=== PATIENT | male | born 1970 | race Two or more races ===

== ENCOUNTER 2021-03-10 12:30 | Inpatient (IN) | payer OTHER ==
[~2021-03-10] VITALS: Ht 182.9 cm; Wt 133.8 kg
[2021-03-10] MEDS ORDERED: NORVASC10 MG PO (14:02)
[2021-03-10] MEDS ORDERED: OXYCODON-ACETA1 EACH PO (14:03)
[2021-03-10] MEDS ORDERED: BACLOFEN20 MG PO (14:04)
[2021-03-12] MEDS ORDERED: GLYCOPYRROLATE2 MG (08:13)
[2021-03-12] MEDS ORDERED: FOLIC ACID1 MG (08:13)
[2021-03-12] MEDS ORDERED: FAMOTIDINE40 MG (08:13)
[2021-03-12] MEDS ORDERED: LINZESS145 MCG (08:14)
[2021-04-28] MEDS ORDERED: [UNRECOGNIZED DRUG - OTHER] PO (10:48)
== END 2021-03-18 10:25 | disposition home or self-care (01) | DRG 329 ==
LOC: O/R 03-12 06:32 → SURG 03-12 06:32 → SURH 03-12 12:30 → SURG 03-18 10:25
PROVIDERS: ADMIT Surgery; ATTEND Surgery
PROC: 07BD0ZX Excision of Aortic Lymphatic, Open Approach, Diagnostic (ICD-10-PCS; 2021-03-12)
PROC: 3E0F7SF Introduction of Other Gas into Respiratory Tract, Via Natural or Artificial Opening (ICD-10-PCS; 2021-03-12)
PROC: 4A033R1 Measurement of Arterial Saturation, Peripheral, Percutaneous Approach (ICD-10-PCS; 2021-03-12)
PROC: 4A12X4Z Monitoring of Cardiac Electrical Activity, External Approach (ICD-10-PCS; 2021-03-12)
PROC: 3E0F7GC Introduction of Other Therapeutic Substance into Respiratory Tract, Via Natural or Artificial Opening (ICD-10-PCS; 2021-03-12)
PROC: 0DTF0ZZ Resection of Right Large Intestine, Open Approach (ICD-10-PCS; principal; 2021-03-12 13:30)
PROC: 8E0ZXY6 Isolation (ICD-10-PCS; 2021-03-17)
DX: C18.0 Malignant neoplasm of cecum (principal); G82.50 Quadriplegia, unspecified; N39.0 Urinary tract infection, site not specified; Z16.12 Extended spectrum beta lactamase (ESBL) resistance; L89.329 Pressure ulcer of left buttock, unspecified stage; B96.1 Klebsiella pneumoniae [K. pneumoniae] as the cause of diseases classified elsewhere; Z20.822 Contact with and (suspected) exposure to COVID-19; E66.01 Morbid (severe) obesity due to excess calories; G47.33 Obstructive sleep apnea (adult) (pediatric)

== ENCOUNTER 2021-04-30 10:06 | Day surgery (SDC) | payer OTHER ==
[~2021-04-30 10:06] MED LIST: BACLOFEN20 MG PO; FAMOTIDINE40 MG; FOLIC ACID1 MG; GLYCOPYRROLATE2 MG; LINZESS145 MCG; NORVASC10 MG PO; OXYCODON-ACETA1 EACH PO; ULTRACET PO; [UNRECOGNIZED DRUG - OTHER] PO
== END 2021-04-30 12:05 | disposition home or self-care (01) ==
LOC: CIR.AMB 10:06
PROVIDERS: ATTEND Surgery
DX: C18.0 Malignant neoplasm of cecum (principal)
CPT/HCPCS: 36561; C1751

== ENCOUNTER 2022-04-07 13:02 | Inpatient (IN) | payer OTHER ==
[~2022-04-07] VITALS: Ht 182.9 cm; Wt 99.8 kg
[~2022-04-07 13:02] MED LIST changes: +LEVOFLOXACIN500 MG PO; +METRONIDAZOLE500 MG PO; +OMEPRAZOLE20 MG
[2022-04-07] MEDS ORDERED: PERCOCET 5-3251 EACH (13:27)
[2022-04-08] MEDS ORDERED: DIPHENHYDR50 MG/1 M1 (11:44)
[2022-04-08] MEDS ORDERED: FAMOTIDINE40 MG (11:44)
[2022-04-08] MEDS ORDERED: DICYCLOMINE HCL20 MG (11:44)
[2022-04-08] MEDS ORDERED: DEXAMETHASO4 MG/1 M1 (11:44)
[2022-04-08] MEDS ORDERED: OXALIPLATI100 MG/20 (11:45)
[2022-04-08] MEDS ORDERED: MELOXICAM15 MG (11:45)
[2022-04-08] MEDS ORDERED: MVASI25 MG/1 ML (11:45)
[2022-04-08] MEDS ORDERED: LEUCOVORIN CAL200 MG (11:45)
[2022-04-08] MEDS ORDERED: GLYCOPYRROLATE2 MG (11:45)
[2022-04-08] MEDS ORDERED: TRAM1TAB98 (11:45)
[2022-04-08] MEDS ORDERED: FOLIC ACID1 MG (11:45)
[2022-04-08] MEDS ORDERED: FLUOROURAC1 GM/20 ML (11:45)
[2022-04-08] MEDS ORDERED: FAMOTIDINE20 MG/2 M1 (11:45)
[2022-04-08] MEDS ORDERED: ONDANSETRON4 MG/2 M5 (11:45)
[2022-04-26] MEDS ORDERED: INTESTINEX680 M1 PO (10:48)
[2022-04-26] MEDS ORDERED: FOLIC ACID1 MG PO (10:48)
[2022-04-26] MEDS ORDERED: ELIQUIS5 MG PO (10:48)
[2022-04-26] MEDS ORDERED: ULTRAM50 MG PO (10:48)
[2022-04-26] MEDS ORDERED: ABANEU-SL TABL1 EACH SL (10:48)
[2022-04-26] MEDS ORDERED: DICYCLOMINE HCL20 MG PO (10:48)
[2022-04-26] MEDS ORDERED: OMEPRAZOLE20 MG PO (10:48)
[2022-04-26] MEDS ORDERED: NORVASC10 MG PO (10:48)
[2022-04-26] MEDS ORDERED: MAGNESIUM CHLOR70 MG PO (10:48)
[2022-04-26] MEDS ORDERED: FUSION PLUS CA1 EACH PO (10:48)
[2022-04-26] MEDS ORDERED: FAMOTIDINE20 MG PO (10:50)
== END 2022-04-26 12:20 | disposition home or self-care (01) | DRG 592 ==
LOC: ER 13:02 → MEDI 21:51 → MEDJ 04-11 19:23
PROVIDERS: ADMIT Internal Medicine Geriatric Medicine; ATTEND Internal Medicine Geriatric Medicine
PROC: B24BZZZ Ultrasonography of Heart with Aorta (ICD-10-PCS; 2022-04-07)
PROC: 2W15X6Z Compression of Back using Pressure Dressing (ICD-10-PCS; 2022-04-08)
PROC: 4A12X4Z Monitoring of Cardiac Electrical Activity, External Approach (ICD-10-PCS; 2022-04-08)
PROC: 0HB6XZZ Excision of Back Skin, External Approach (ICD-10-PCS; principal; 2022-04-14)
DX: L89.154 Pressure ulcer of sacral region, stage 4 (principal); A41.9 Sepsis, unspecified organism; G82.50 Quadriplegia, unspecified; M86.18 Other acute osteomyelitis, other site; N39.0 Urinary tract infection, site not specified; C18.9 Malignant neoplasm of colon, unspecified; C78.7 Secondary malignant neoplasm of liver and intrahepatic bile duct; L08.9 Local infection of the skin and subcutaneous tissue, unspecified; B96.20 Unspecified Escherichia coli [E. coli] as the cause of diseases classified elsewhere; B96.4 Proteus (mirabilis) (morganii) as the cause of diseases classified elsewhere; B96.89 Other specified bacterial agents as the cause of diseases classified elsewhere; I10 Essential (primary) hypertension; G47.33 Obstructive sleep apnea (adult) (pediatric); I48.0 Paroxysmal atrial fibrillation; E87.6 Hypokalemia; Z20.822 Contact with and (suspected) exposure to COVID-19; E66.01 Morbid (severe) obesity due to excess calories; Z74.01 Bed confinement status

== ENCOUNTER 2023-03-14 10:29 | Inpatient (IN) | payer OTHER ==
[~2023-03-14] VITALS: Ht 182.9 cm; Wt 83.9 kg
[~2023-03-14 10:29] MED LIST changes: +ABANEU-SL TABL1 EACH SL; +DEXAMETHASO4 MG/1 M1; +DICYCLOMINE HCL20 MG; +DICYCLOMINE HCL20 MG PO; +DIPHENHYDR50 MG/1 M1; +ELIQUIS5 MG PO; +FAMOTIDINE20 MG PO; +FAMOTIDINE20 MG/2 M1; +FLUOROURAC1 GM/20 ML; +FOLIC ACID1 MG PO; +FUSION PLUS CA1 EACH PO; +INTESTINEX680 M1 PO; +LEUCOVORIN CAL200 MG; +MAGNESIUM CHLOR70 MG PO; +MELOXICAM15 MG; +MVASI25 MG/1 ML; +OMEPRAZOLE20 MG PO; +ONDANSETRON4 MG/2 M5; +OXALIPLATI100 MG/20; +PERCOCET 5-3251 EACH; +TRAM1TAB98; +ULTRAM50 MG PO
[2023-03-14] MEDS ORDERED: ELIQUIS2.5 MG (10:55)
[2023-04-09] MEDS ORDERED: FAMOTIDINE20 MG PO (04:47)
[2023-04-09] MEDS ORDERED: AMLODIPINE BESYL5 MG PO (04:47)
[2023-04-09] MEDS ORDERED: INTESTINEX680 M1 PO (04:47)
[2023-04-09] MEDS ORDERED: ELIQUIS5 MG PO (04:47)
[2023-04-09] MEDS ORDERED: FUSION PLUS CA1 EACH PO (04:47)
== END 2023-04-09 07:37 | disposition home or self-care (01) | DRG 981 ==
LOC: ER 10:29 → MEDJ 22:34
PROVIDERS: Emergency Medicine; Internal Medicine; Specialist; ADMIT Internal Medicine Geriatric Medicine; ATTEND Internal Medicine Geriatric Medicine
PROC: BW21YZZ Computerized Tomography (CT Scan) of Abdomen and Pelvis using Other Contrast (ICD-10-PCS; 2023-03-14)
PROC: BW24ZZZ Computerized Tomography (CT Scan) of Chest and Abdomen (ICD-10-PCS; 2023-03-14)
PROC: 02HV33Z Insertion of Infusion Device into Superior Vena Cava, Percutaneous Approach (ICD-10-PCS; 2023-03-15)
PROC: 4A12X4Z Monitoring of Cardiac Electrical Activity, External Approach (ICD-10-PCS; 2023-03-15)
PROC: 0JD70ZZ Extraction of Back Subcutaneous Tissue and Fascia, Open Approach (ICD-10-PCS; 2023-03-16)
PROC: 0JD70ZZ Extraction of Back Subcutaneous Tissue and Fascia, Open Approach (ICD-10-PCS; 2023-03-16)
PROC: 0JD90ZZ Extraction of Buttock Subcutaneous Tissue and Fascia, Open Approach (ICD-10-PCS; 2023-03-16)
PROC: 0JD70ZZ Extraction of Back Subcutaneous Tissue and Fascia, Open Approach (ICD-10-PCS; principal; 2023-03-23)
PROC: 0JD70ZZ Extraction of Back Subcutaneous Tissue and Fascia, Open Approach (ICD-10-PCS; 2023-03-23)
PROC: 0JD90ZZ Extraction of Buttock Subcutaneous Tissue and Fascia, Open Approach (ICD-10-PCS; 2023-03-23)
PROC: 0W9930Z Drainage of Right Pleural Cavity with Drainage Device, Percutaneous Approach (ICD-10-PCS; 2023-03-24)
PROC: B54MZZZ Ultrasonography of Right Upper Extremity Veins (ICD-10-PCS; 2023-03-27)
PROC: 0W29X0Z Change Drainage Device in Right Pleural Cavity, External Approach (ICD-10-PCS; 2023-03-31)
PROC: 0JD70ZZ Extraction of Back Subcutaneous Tissue and Fascia, Open Approach (ICD-10-PCS; 2023-04-01)
PROC: 0JD70ZZ Extraction of Back Subcutaneous Tissue and Fascia, Open Approach (ICD-10-PCS; 2023-04-01)
PROC: 0JD90ZZ Extraction of Buttock Subcutaneous Tissue and Fascia, Open Approach (ICD-10-PCS; 2023-04-01)
PROC: B24BZZZ Ultrasonography of Heart with Aorta (ICD-10-PCS; 2023-04-01)
DX: J90 Pleural effusion, not elsewhere classified (principal); G82.50 Quadriplegia, unspecified; L89.154 Pressure ulcer of sacral region, stage 4; N39.0 Urinary tract infection, site not specified; C78.7 Secondary malignant neoplasm of liver and intrahepatic bile duct; C78.5 Secondary malignant neoplasm of large intestine and rectum; Z16.12 Extended spectrum beta lactamase (ESBL) resistance; C18.0 Malignant neoplasm of cecum; B96.1 Klebsiella pneumoniae [K. pneumoniae] as the cause of diseases classified elsewhere; D63.0 Anemia in neoplastic disease; B96.89 Other specified bacterial agents as the cause of diseases classified elsewhere; I48.0 Paroxysmal atrial fibrillation; K76.81 Hepatopulmonary syndrome; L89.109 Pressure ulcer of unspecified part of back, unspecified stage; L89.329 Pressure ulcer of left buttock, unspecified stage; K62.7 Radiation proctitis; K64.4 Residual hemorrhoidal skin tags; Z74.01 Bed confinement status; R00.8 Other abnormalities of heart beat; L08.9 Local infection of the skin and subcutaneous tissue, unspecified; B96.4 Proteus (mirabilis) (morganii) as the cause of diseases classified elsewhere; B95.2 Enterococcus as the cause of diseases classified elsewhere; I10 Essential (primary) hypertension

== ENCOUNTER 2025-02-12 09:47 | Inpatient (IN) | payer OTHER ==
[~2025-02-12] VITALS: Ht 182.9 cm; Wt 90.7 kg
[~2025-02-12 09:47] MED LIST changes: +AMLODIPINE BESYL5 MG PO; +ELIQUIS2.5 MG
[2025-02-12] MEDS ORDERED: KETOCONAZOLE200 MG PO (10:39)
[2025-02-12] MEDS ORDERED: FUROSEMIDE20 MG PO (10:39)
--- NOTE | 2025-02-12 10:40 | NUR ---
PTE REFIEFE ULCERAS SACRAL X2 Y SHANTELL ULCERA EN EL MUSCLO L+ SE LE RAMON S/V Y SE UBOICA EN PASILLO. PTE REFIEFE QUE ES PTE DEL PHI LEÓN CON REFERIDO.
[2025-02-12] MEDS ORDERED: 0.9 % SODIUM CHLORIDE 1,000 ML IV SCH ×2 (11:15→21:30)
--- NOTE | 2025-02-12 13:34 | NUR ---
SE EDUCA A PACIENTE SOBRE TRATAMIENTO MEDICO EL CUAL REFIERE ENTENDER, SE REALIZA COLECCION DE MUESTRAS Y ADMINISTRACION DE MEDICAMENTOS GEOVANNA ORDEN MEDICA.
[2025-02-12 13:51] LABS: BASO % 0.2 % (0.1-1.2); EOS # 0.41 (0.04-0.54); EOS % 3.4 % (0.7-7.0); LYMPH # 1.57 (1.18-3.74); LYMPH % 13.1 % (19.3-53.1); MEAN PLATELET VOLUME 8.60 fl (9.4-12.4); MONO # 0.76 (0.24-0.82); MONO % 6.3 % (4.7-12.5); NEUT # 9.20 (1.56-6.13); NEUT % 76.7 % (34.0-71.1); RED CELL DISTRIBUTION WIDTH 15.3 % (11.6-14.4)
[2025-02-12 14:22] LABS: INR 1.15
[2025-02-12 14:23] LABS: BUN CREA RATIO 18.0 (7.0-25.0); CREATININE SERUM 0.79 mg/dL (0.70-1.30); GFR 102.6; GLUCOSE FASTING 90.0 mg/dL (65-100); OSMOLALITY SERUM 281.0 MOSM/KG (275-295)
--- NOTE | 2025-02-12 16:35 | NUR ---
PTE ALERTA Y ORIENTADO X 3 ESFERAS SIN FAMILIAR,EN CAMA CON BARANDAS ELEVADAS,AREA DE VENOPUNCION PATENTE Y JEAN-PAUL DE EDEMA CON FLUIDOS DE MANTENIMIENTO.RIBERA CON ORINA AMARILLA MEG.SE RAMON MUESTRA DE UA.PENDIENTE CT.PTE EVALUADO POR DR PHI CHEW.
[2025-02-12 17:37] LABS: URINE APPEARANCE Clear; URINE BILIRRUBIN Negative (NEGATIVE); URINE BLOOD Small; URINE COLOR Yellow; URINE GLUCOSE Negative (NEGATIVE); URINE KETONE Negative (NEGATIVE); URINE LEUKOCYTE Moderate; URINE NITRATE Negative; URINE PROTEIN Negative (NEGATIVE); URINE UROBILINOGEN 0.2 E.U./dl
[2025-02-12 17:41] LABS: URINE BACTERIA 6961.8 uL (0.0-1933); URINE EPITHELIAL CELLS 1.9 uL (0.0-38.8); URINE RBC 23.1 uL (0.0-20.8); URINE WBC 116.4 uL (0.0-23.2)
[2025-02-12 17:50] LABS: URINE CAST 0.43 uL (0.0-1.40)
[2025-02-12] MEDS ORDERED: VANCOMYCIN HCL 1,000 MG VIAL IV SCH (21:25)
[2025-02-12] MEDS ORDERED: PIPERACILLIN/TAZOBACTAM SODIUM 3.375 GM in DEXTROSE 5 % IN WATER 100 ML IV SCH (21:25)
[2025-02-12] MEDS ORDERED: ONDANSETRON HCL 4 MG in 0.9 % SODIUM CHLORIDE 50 ML IV PRN (21:30)
[2025-02-12] MEDS ORDERED: ACETAMINOPHEN 500 MG GEL..CAP PO PRN (21:30)
[2025-02-13 08:00] VITALS: BP 180/90; O2SAT 97
[2025-02-13] MEDS ORDERED: FAMOTIDINE/PF 20 MG in 0.9 % SODIUM CHLORIDE 8 ML IV PUSH SCH (09:00)
[2025-02-13] MEDS ORDERED: ENOXAPARIN SODIUM 40 MG/0.4 ML SYRINGE SUBCUTANEO SCH (09:00)
[2025-02-13] MEDS ORDERED: TRAMADOL HCL 50 MG TABLET PO PRN (14:30)
[2025-02-13 16:00] VITALS: BP 132/74; O2SAT 99
[2025-02-13] MEDS ORDERED: LACTOBACILLUS ACIDOPHILUS 1 CAP CAP PO SCH (17:00)
[2025-02-14 01:58] VITALS: BP 123/72; O2SAT 98
[2025-02-14] MEDS ORDERED: CHLORHEXIDINE GLUCONATE 120 ML BOTTLE TOP SCH (09:00)
[2025-02-14 09:31] LABS: BASO % 0.4 % (0.1-1.2); EOS # 0.59 (0.04-0.54); EOS % 7.9 % (0.7-7.0); LYMPH # 1.55 (1.18-3.74); LYMPH % 20.7 % (19.3-53.1); MEAN PLATELET VOLUME 8.90 fl (9.4-12.4); MONO # 0.77 (0.24-0.82); MONO % 10.3 % (4.7-12.5); NEUT # 4.51 (1.56-6.13); NEUT % 60.4 % (34.0-71.1); RED CELL DISTRIBUTION WIDTH 15.3 % (11.6-14.4)
[2025-02-14 10:18] LABS: BUN CREA RATIO 18.0 (7.0-25.0); CREATININE SERUM 0.67 mg/dL (0.70-1.30); GFR 124.08; GLUCOSE FASTING 79.0 mg/dL (65-100); OSMOLALITY SERUM 286.0 MOSM/KG (275-295)
[2025-02-14 10:28] VITALS: BP 186/95; O2SAT 100
[2025-02-14] MEDS ORDERED: [UNRECOGNIZED DRUG - OTHER] PO SCH (12:25)
[2025-02-14] MEDS ORDERED: BACLOFEN 10 MG TABLET PO NR (13:00)
[2025-02-14] MEDS ORDERED: AMLODIPINE BESYLATE 2.5 MG TABLET PO NR (13:00)
[2025-02-14] MEDS ORDERED: VANCOMYCIN HCL 1,000 MG VIAL ONE (14:08)
[2025-02-14 16:00] VITALS: BP 135/84; O2SAT 99
[2025-02-14] MEDS ORDERED: BACLOFEN 10 MG TABLET PO SCH (21:00)
[2025-02-15] MEDS ORDERED: VANCOMYCIN HCL 1,000 MG VIAL ONE ×3 (02:56→23:31)
[2025-02-15] MEDS ORDERED: AMLODIPINE BESYLATE 2.5 MG TABLET PO SCH (09:00)
[2025-02-15 09:53] VITALS: BP 134/72; O2SAT 100
[2025-02-15 16:49] VITALS: BP 115/70; O2SAT 97
[2025-02-15] MEDS ORDERED: MUPIROCIN 15 GM OINT..GM TUBE NASAL SCH (17:00)
[2025-02-16 01:33] VITALS: BP 115/72; O2SAT 100
[2025-02-16 08:00] VITALS: BP 143/93; O2SAT 97
[2025-02-16] MEDS ORDERED: VANCOMYCIN HCL 1,000 MG VIAL ONE ×2 (15:22→22:24)
[2025-02-16 16:00] VITALS: BP 133/65; O2SAT 98
[2025-02-17 01:17] VITALS: BP 126/73; O2SAT 100
[2025-02-17 08:00] VITALS: BP 149/71; O2SAT 100
[2025-02-17] MEDS ORDERED: VANCOMYCIN HCL 1,000 MG VIAL ONE ×2 (15:40→22:41)
[2025-02-17 17:00] VITALS: BP 100/59; O2SAT 98
[2025-02-18 00:53] VITALS: BP 165/93; O2SAT 99
[2025-02-18 08:00] VITALS: BP 122/69; O2SAT 99
[2025-02-18] MEDS ORDERED: VANCOMYCIN HCL 1,000 MG VIAL ONE (14:03)
[2025-02-18 17:03] VITALS: BP 136/79; O2SAT 98
[2025-02-19] MEDS ORDERED: VANCOMYCIN HCL 1,000 MG VIAL ONE ×3 (00:39→22:31)
[2025-02-19 00:50] VITALS: BP 147/80; O2SAT 100
[2025-02-19 08:00] VITALS: BP 160/80; O2SAT 97
[2025-02-19] MEDS ORDERED: SODIUM HYPOCHLORITE 1OZ TOP SCH (09:00)
[2025-02-19] MEDS ORDERED: ONDANSETRON HCL 2 MG/ML VIAL IV PRN (13:15)
[2025-02-19 15:30] VITALS: BP 136/82; O2SAT 99
[2025-02-19] MEDS ORDERED: CLOTRIMAZOLE/BETAMETHASONE DIP 15 GM TUBE TOP SCH (17:00)
[2025-02-19 18:53] LABS: BASO % 0.4 % (0.1-1.2); EOS # 0.75 (0.04-0.54); EOS % 9.8 % (0.7-7.0); LYMPH # 1.60 (1.18-3.74); LYMPH % 20.8 % (19.3-53.1); MEAN PLATELET VOLUME 8.90 fl (9.4-12.4); MONO # 0.60 (0.24-0.82); MONO % 7.8 % (4.7-12.5); NEUT # 4.69 (1.56-6.13); NEUT % 60.9 % (34.0-71.1); RED CELL DISTRIBUTION WIDTH 15.9 % (11.6-14.4)
[2025-02-19 18:57] LABS: ERYTHROCYTE SEDIMENTATION RATE 79 mm/hr (0-20)
[2025-02-19 19:28] LABS: ALT/SGPT 16.0 U/L (12-78); AST/SGOT 18.0 U/L (15-37); BILIRUBIN TOTAL 0.51 mg/dL (0.3-1.2); BUN CREA RATIO 16.0 (7.0-25.0); CREATININE SERUM 0.88 mg/dL (0.70-1.30); GFR 90.59; GLOBULINA 4.0 G/DL (2.4-3.5); GLUCOSE FASTING 133.0 mg/dL (65-100); OSMOLALITY SERUM 287.0 MOSM/KG (275-295)
[2025-02-20 08:00] VITALS: BP 120/71; O2SAT 100
[2025-02-20] MEDS ORDERED: VANCOMYCIN HCL 1,000 MG VIAL ONE ×2 (14:43→22:43)
[2025-02-20 16:57] VITALS: BP 139/74; O2SAT 98
[2025-02-20] MEDS ORDERED: AMINO ACIDS 1 EACH TABLET PO SCH (17:00)
[2025-02-21 01:25] VITALS: BP 141/64; O2SAT 100
[2025-02-21] MEDS ORDERED: VANCOMYCIN HCL 1,000 MG VIAL ONE ×2 (14:14→22:35)
[2025-02-21 16:00] VITALS: BP 131/71; O2SAT 98
[2025-02-22 01:01] VITALS: BP 105/62; O2SAT 98
[2025-02-22 09:00] VITALS: BP 138/69; O2SAT 100
[2025-02-22] MEDS ORDERED: VANCOMYCIN HCL 1,000 MG VIAL ONE (14:40)
[2025-02-22 16:27] VITALS: BP 115/68; O2SAT 100
[2025-02-23] VITALS: BP 101/67; O2SAT 100
[2025-02-23] MEDS ORDERED: VANCOMYCIN HCL 1,000 MG VIAL ONE ×2 (05:10→15:23)
[2025-02-23 08:00] VITALS: BP 120/68; O2SAT 99
[2025-02-23 16:00] VITALS: BP 102/70; O2SAT 99
[2025-02-23 23:53] VITALS: BP 140/67; O2SAT 99
[2025-02-24] MEDS ORDERED: VANCOMYCIN HCL 1,000 MG VIAL ONE (00:04)
[2025-02-24 08:00] VITALS: BP 152/79; O2SAT 96
[2025-02-24 08:50] LABS: BUN CREA RATIO 23.0 (7.0-25.0); CREATININE SERUM 0.8 mg/dL (0.70-1.30); GFR 101.12; GLUCOSE FASTING 79.0 mg/dL (65-100); OSMOLALITY SERUM 290.0 MOSM/KG (275-295)
[2025-02-24 09:03] LABS: BASO % 0.7 % (0.1-1.2); EOS # 0.80 (0.04-0.54); EOS % 11.3 % (0.7-7.0); LYMPH # 2.24 (1.18-3.74); LYMPH % 31.7 % (19.3-53.1); MEAN PLATELET VOLUME 9.30 fl (9.4-12.4); MONO # 0.62 (0.24-0.82); MONO % 8.8 % (4.7-12.5); NEUT # 3.34 (1.56-6.13); NEUT % 47.2 % (34.0-71.1); RED CELL DISTRIBUTION WIDTH 15.8 % (11.6-14.4)
[2025-02-24 16:19] VITALS: BP 90/60; O2SAT 95
[2025-02-25 01:43] VITALS: BP 161/71; O2SAT 98
[2025-02-25] MEDS ORDERED: POLYETHYLENE GLYCOL 3350 17 GM BLIST.PACK PO NR (10:00)
[2025-02-25 12:38] VITALS: BP 182/89; O2SAT 98
[2025-02-25] MEDS ORDERED: POLYETHYLENE GLYCOL 3350 17 GM BLIST.PACK PO SCH (17:00)
[2025-02-26 03:45] VITALS: BP 132/78; O2SAT 99
[2025-02-26 08:00] VITALS: BP 130/74; O2SAT 100
[2025-02-26] MEDS ORDERED: CHLORHEXIDINE GLUCONATE 120 ML BOTTLE TOP SCH (10:15)
[2025-02-26 16:05] VITALS: BP 95/57; O2SAT 97
[2025-02-27] VITALS: BP 98/62; O2SAT 98
[2025-02-27] MEDS ORDERED: PIPERACILLIN/TAZOBACTAM SODIUM 3.375 GM in DEXTROSE 5 % IN WATER 100 ML IV SCH (07:58)
[2025-02-27 08:00] VITALS: BP 190/89; O2SAT 98
[2025-02-27] MEDS ORDERED: VANCOMYCIN HCL 1,000 MG VIAL IV SCH (09:00)
[2025-02-27] MEDS ORDERED: PIPERACILLIN/TAZOBACTAM SODIUM 3.375 GM in 0.9 % SODIUM CHLORIDE 100 ML IV SCH (12:00)
[2025-02-27 16:00] VITALS: BP 162/80; O2SAT 97
[2025-02-28 00:27] VITALS: BP 138/70; O2SAT 100
[2025-02-28 06:48] LABS: BASO % 0.7 % (0.1-1.2); EOS # 0.81 (0.04-0.54); EOS % 11.3 % (0.7-7.0); LYMPH # 2.54 (1.18-3.74); LYMPH % 35.5 % (19.3-53.1); MEAN PLATELET VOLUME 9.50 fl (9.4-12.4); MONO # 0.62 (0.24-0.82); MONO % 8.7 % (4.7-12.5); NEUT # 3.12 (1.56-6.13); NEUT % 43.7 % (34.0-71.1); RED CELL DISTRIBUTION WIDTH 15.8 % (11.6-14.4)
[2025-02-28 07:37] LABS: BUN CREA RATIO 29.0 (7.0-25.0); CREATININE SERUM 0.84 mg/dL (0.70-1.30); GFR 95.58; GLUCOSE FASTING 81.0 mg/dL (65-100); OSMOLALITY SERUM 288.0 MOSM/KG (275-295)
[2025-02-28 08:25] VITALS: BP 180/85; O2SAT 97
[2025-02-28] MEDS ORDERED: POTASSIUM CHLORIDE 20MEQ/100ML H2O PB IV NR (10:15)
[2025-02-28 15:30] VITALS: BP 93/55; O2SAT 99
[2025-03-01 01:24] VITALS: BP 130/60; BP 145/75; O2SAT 93; O2SAT 97
[2025-03-01 08:00] VITALS: BP 130/73; O2SAT 98
[2025-03-01] MEDS ORDERED: BACTRIM DS TAB1 EACH PO (10:41)
[2025-03-01] MEDS ORDERED: BACLOFEN10 MG PO (10:41)
[2025-03-01] MEDS ORDERED: INTESTINEX680 M1 PO (10:41)
[2025-03-01] MEDS ORDERED: NORVASC2.5 M1 PO (10:41)
[2025-03-01] MEDS ORDERED: FAMOTIDINE20 MG PO (10:41)
[2025-03-01] MEDS ORDERED: ELIQUIS5 MG PO (10:41)
[2025-03-01] MEDS ORDERED: PRE PROTEIN1 EACH PO (10:41)
== END 2025-03-01 12:48 | disposition home or self-care (01) | DRG 579 ==
LOC: ER 09:47 → SURG 22:04 → SEC-K 22:04 → SURG 02-13 00:13
PROVIDERS: Emergency Medicine; Internal Medicine; ADMIT Internal Medicine Geriatric Medicine; ATTEND Internal Medicine Geriatric Medicine
PROC: BW21ZZZ Computerized Tomography (CT Scan) of Abdomen and Pelvis (ICD-10-PCS; 2025-02-12)
PROC: 0JD70ZZ Extraction of Back Subcutaneous Tissue and Fascia, Open Approach (ICD-10-PCS; principal; 2025-02-13)
PROC: 0JDL0ZZ Extraction of Right Upper Leg Subcutaneous Tissue and Fascia, Open Approach (ICD-10-PCS; 2025-02-13)
PROC: 0JD70ZZ Extraction of Back Subcutaneous Tissue and Fascia, Open Approach (ICD-10-PCS; 2025-02-19)
PROC: 0JDL0ZZ Extraction of Right Upper Leg Subcutaneous Tissue and Fascia, Open Approach (ICD-10-PCS; 2025-02-19)
PROC: 0JD70ZZ Extraction of Back Subcutaneous Tissue and Fascia, Open Approach (ICD-10-PCS; 2025-02-27)
PROC: F08 Physical Rehabilitation and Diagnostic Audiology, Rehabilitation, Activities of Daily Living Treatment (ICD-10-PCS; 2025-02-27)
PROC: 02HV33Z Insertion of Infusion Device into Superior Vena Cava, Percutaneous Approach (ICD-10-PCS; 2025-03-01)
DX: L89.154 Pressure ulcer of sacral region, stage 4 (principal); G82.50 Quadriplegia, unspecified; C78.7 Secondary malignant neoplasm of liver and intrahepatic bile duct; N39.0 Urinary tract infection, site not specified; C18.9 Malignant neoplasm of colon, unspecified; L02.415 Cutaneous abscess of right lower limb; L08.9 Local infection of the skin and subcutaneous tissue, unspecified; B96.20 Unspecified Escherichia coli [E. coli] as the cause of diseases classified elsewhere; B96.4 Proteus (mirabilis) (morganii) as the cause of diseases classified elsewhere; B95.61 Methicillin susceptible Staphylococcus aureus infection as the cause of diseases classified elsewhere; I48.91 Unspecified atrial fibrillation; K60.30 Anal fistula, unspecified; D64.9 Anemia, unspecified